=== PATIENT | male | born 2000 | race Two or more races ===

== ENCOUNTER 2018-09-23 22:37 | Emergency (ER) | payer OTHER, SELFPAY ==
--- NOTE | 2018-09-23 23:44 | RAD ---
RIGHT CLAVICLE TWO VIEWS: History: Pain. Comparison: None. FINDINGS: Clavicle is intact. No fracture. No malalignment. No os acromiale. IMPRESSION: No acute abnormality. POS: [facility]
== END 2018-09-23 23:55 | disposition home or self-care (01) ==
LOC: ERS 22:37
DX: M25.511 Pain in right shoulder (principal); J45.909 Unspecified asthma, uncomplicated

== ENCOUNTER 2024-06-22 00:33 | Emergency (ER) | payer OTHER ==
[2024-06-22 00:53] LABS: Hematocrit 40.6 % (42.0-52.0); Mean Corpuscular HGB CONC 34.5 g/dL (32.0-36.0); Mean Corpuscular Hemoglobin 30.3 pg (27.0-31.0); Mean Corpuscular Volume 87.9 fL (78.0-98.0); Mean Platelet Volume 10.1 fL (7.4-10.4); Platelet Count 282 10x3/uL (130-400); RBC Distribution Width 12.3 % (11.5-14.5); Red Blood Cell (RBC) Count 4.62 mill/uL (4.70-6.10)
[2024-06-22 01:10] LABS: ALT (SGPT) 16 U/L (8-55); AST (SGOT) 28 U/L (5-34); Albumin 4.6 g/dL (3.5-5.0); Alkaline Phosphatase 46 U/L (40-110); Anion Gap 14 mmol/L (10-20); BUN (Urea Nitrogen) 12 mg/dL (8.9-20.6); Bilirubin, Total 0.3 mg/dL (0.2-1.2); Calc. Creatinine Clearance 0 mL/min (70-130); Calcium 9.2 mg/dL (7.8-10.44); Carbon Dioxide 25 mmol/L (22-29); Chloride 107 mmol/L (98-107); Estimated GFR 122; Globulin 3.2 g/dL (2.4-3.5); Glucose 120 mg/dL (70-105); Potassium 3.1 mmol/L (3.5-5.1); Protein, Total 7.8 g/dL (6.0-8.3); Sodium 143 mmol/L (136-145)
[2024-06-22 01:11] LABS: Acetaminophen Less than 10 mcg/mL (Less than 10); Alcohol 166.4 mg/dL (Less than 10); Salicylate Less than 8.0 mg/dL (Less than 8.0)
[2024-06-22 01:12] LABS: Band 2 % (5-11); Eosinophils 1 % (0-10); Lymphocytes 27 % (21-51); Monocytes 6 % (0-10); Myelocyte 1 % (0-0); Neutrophil 51 % (42-75); Platelet Adequacy Comment Platelets Normal; Reactive Lymphocytes 11 % (0-10)
[2024-06-22] MEDS ORDERED: Ibuprofen 800 MG TAB ONE (02:54)
[2024-06-22] MEDS ORDERED: Iopamidol-370 76% 500 ML MDV (1 ML CHARGE) ONE (12:45)
== END 2024-06-22 03:15 ==
LOC: ERS 00:33
DX: S32.018A Other fracture of first lumbar vertebra, initial encounter for closed fracture (principal); S02.2XXA Fracture of nasal bones, initial encounter for closed fracture; E87.6 Hypokalemia; Z55.0 Illiteracy and low-level literacy; V59.9XXA Occupant (driver) (passenger) of pick-up truck or van injured in unspecified traffic accident, initial encounter; Y93.89 Activity, other specified; Y92.410 Unspecified street and highway as the place of occurrence of the external cause
CPT/HCPCS: 70450; 70486; 71260; 72125; 74177; 80053; 80307; 85025; 93005; Q9967